=== PATIENT | male | born 1995 | race Caucasian/White ===

== ENCOUNTER 2016-08-24 22:14 | Emergency (ER) | payer SELFPAY ==
[2016-08-24] MEDS ORDERED: SODIUM CHLORIDE 0.9% 1,000 ML IV ONE (23:30)
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
[2016-08-24 23:49] LABS: Basophils # (A) 0.1 k/uL (0-0.2); Basophils % (A) 1 %; CH 31.9; CHCM 35.9; Eosinophils # (A) 0.1 k/uL (0-0.7); Eosinophils % (A) 1 %; HCT 47.9 % (39.0-53.0); HDW 2.69; HGB 17.2 gm/dL (13.0-17.5); Luc # (Auto) 0.15; Luc % (Auto) 2; Lymphocytes # (A) 3.6 k/uL (1.0-4.8); Lymphocytes % (A) 42 %; MCHC 35.9 g/dL (31.0-37.0); MCV 89.2 fL (80.0-100.0); Mean Platelet Volume 8.9; Monocytes # (A) 0.5 k/uL (0-1.0); Monocytes % (A) 6 %; Neutrophils # (A) 4.1 k/uL (1.3-7.7); Neutrophils % (A) 48 %; RBC 5.38 m/uL (4.30-5.90); RDW 13.2 % (11.5-15.5); WBC 8.4 k/uL (3.8-10.6); WBC (Perox) 8.13
[2016-08-25 00:04] LABS: ALT 27 U/L (21-72); AST 28 U/L (17-59); Alkaline Phosphatase 85 U/L (38-126); Anion Gap 13 mmol/L; Blood Urea Nitrogen 11 mg/dL (9-20); Calcium 8.6 mg/dL (8.4-10.2); Carbon Dioxide 23 mmol/L (22-30); Chloride 112 mmol/L (98-107); Glucose 164 mg/dL (74-99); Non-African American GFR(MDRD) >60 (>60 ml/min/1.73 sqM); Potassium 4.5 mmol/L (3.5-5.1); Sodium 148 mmol/L (137-145); Total Bilirubin 0.6 mg/dL (0.2-1.3); Total Protein 6.5 g/dL (6.3-8.2)
[2016-08-25 00:08] LABS: Alcohol 185 mg/dL
[2016-08-25 00:11] VITALS: RESP 18
[2016-08-25 00:51] LABS: Appearance,Urine Clear (Clear); Bilirubin,Urine Negative (Negative); Glucose,Urine (UA) Negative (Negative); Ketones,Urine Negative (Negative); Leukocyte Esterase,Urine Negative (Negative); Nitrite,Urine Negative (Negative); PH, Urine 7.5 (5.0-8.0); Protein,Urine Negative (Negative); Specific Gravity,Urine 1.017 (1.001-1.035); UA Billing (MACRO vs. MICRO) CHEM
[2016-08-25 01:41] VITALS: BP 123/77; PULSE 88; TEMP 97.5
== END 2016-08-25 01:41 | disposition home or self-care (01) ==
LOC: EC 22:14
DX: R42 Dizziness and giddiness (principal); F10.129 Alcohol abuse with intoxication, unspecified; F17.200 Nicotine dependence, unspecified, uncomplicated
CPT/HCPCS: 36415; 80053; 80306; 80320; 81003; 82075; 85025; 93005; 99284

== ENCOUNTER 2017-09-16 08:34 | Emergency (ER) | payer OTHER ==
[2017-09-16] MEDS ORDERED: SODIUM CHLORIDE 0.9% 1,000 ML IV STA (09:32)
[2017-09-16] MEDS ORDERED: LORazepam 2 MG/ML INJ IV STA (09:32)
[2017-09-16] MEDS ORDERED: THIAMINE 100 MG/ML 2 ML VIAL IM STA (09:32)
[2017-09-16] MEDS ORDERED: ONDANSETRON 4 MG/2 ML VIAL IVP STA (09:32)
[2017-09-16] MEDS ORDERED: LORazepam 2 MG/ML INJ IV PRN ×3 (09:32)
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
[2017-09-16 10:18] LABS: ALT 30 U/L (21-72); AST 34 U/L (17-59); Albumin 4.9 g/dL (3.5-5.0); Alkaline Phosphatase 87 U/L (38-126); Amylase 53 U/L (30-110); Anion Gap 13 mmol/L; Blood Urea Nitrogen 15 mg/dL (9-20); Calcium 10.1 mg/dL (8.4-10.2); Carbon Dioxide 27 mmol/L (22-30); Chloride 99 mmol/L (98-107); Glucose 120 mg/dL (74-99); Lipase 20 U/L (23-300); Potassium 4.7 mmol/L (3.5-5.1); Sodium 139 mmol/L (137-145); Total Bilirubin 1.5 mg/dL (0.2-1.3); Total Protein 7.5 g/dL (6.3-8.2)
[2017-09-16 10:26] LABS: Basophils % (A) 0 %; Eosinophils % (A) 0 %; HCT 51.4 % (39.0-53.0); HGB 17.7 gm/dL (13.0-17.5); Lymphocytes # (A) 1.1 k/uL (1.0-4.8); Lymphocytes % (A) 9 %; MCH 30.4 pg (25.0-35.0); MCHC 34.3 g/dL (31.0-37.0); MCV 88.6 fL (80.0-100.0); Mean Platelet Volume 8.9; Monocytes # (A) 0.5 k/uL (0-1.0); Monocytes % (A) 4 %; Neutrophils # (A) 10.7 k/uL (1.3-7.7); Neutrophils % (A) 85 %; Platelet Count 194 k/uL (150-450); RBC 5.81 m/uL (4.30-5.90); RDW 13.3 % (11.5-15.5); WBC 12.6 k/uL (3.8-10.6)
--- NOTE | 2017-09-16 11:51 | US ---
EXAMINATION TYPE: US abdomen limited DATE OF EXAM: 09/16/2017 COMPARISON: NONE CLINICAL HISTORY: Pain. patient states heavy drinker, dehydrated, cannot swallow water without feelin g sick, dry heaving during exam, unable to hold still, moaning EXAM MEASUREMENTS: Liver Length: 17.6 cm Gallbladder Wall: 0.2 cm CBD: 0.5 cm Right Kidney: 11.1 x 5.1 x 3.8 cm Pancreas: wnl Liver: wnl, motion artifact due to moaning and patient unable to hold still Gallbladder: wnl Evidence for sonographic Michael's sign: no CBD: wnl Right Kidney: wnl IMPRESSION: Unremarkable limited abdominal ultrasound with no sonographic evidence of cholelithiasis or acute cholecystitis.
[2017-09-16 12:56] VITALS: BP 132/76; PULSE 62; RESP 16; TEMP 98.2
[2017-09-16] MEDS ORDERED: THIAMINE 100 MG TAB PO SCH (17:00)
== END 2017-09-16 13:17 | disposition home or self-care (01) ==
LOC: EC 08:34
DX: F10.10 Alcohol abuse, uncomplicated (principal); R11.2 Nausea with vomiting, unspecified; D72.829 Elevated white blood cell count, unspecified; F17.200 Nicotine dependence, unspecified, uncomplicated
CPT/HCPCS: 99284 ×3; 96374 ×2; 96361 ×2; 96372 ×2; 82075; 36415; 80053; 82140; 82150; 83690; 85025; 76705; S0183; J3411; J2405

== ENCOUNTER 2017-09-16 14:28 | Emergency (ER) | payer OTHER ==
[2017-09-16] MEDS ORDERED: LORazepam 1 MG TAB PO STA (15:44)
[2017-09-16] MEDS ORDERED: PROCHLORPERAZINE 10 MG TAB PO STA (15:44)
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
[2017-09-16 17:13] VITALS: RESP 16
[2017-09-16 20:31] VITALS: BP 118/58; PULSE 65; TEMP 98.1
== END 2017-09-16 20:39 | disposition home or self-care (01) ==
LOC: EC 14:28
DX: F10.10 Alcohol abuse, uncomplicated (principal); R11.2 Nausea with vomiting, unspecified; F17.200 Nicotine dependence, unspecified, uncomplicated
CPT/HCPCS: 99284 ×2; 82075; S0183

== ENCOUNTER 2017-12-26 21:45 | Emergency (ER) | payer SELFPAY ==
[2017-12-26] MEDS ORDERED: ONDANSETRON 4 MG/2 ML VIAL IVP STA (22:55)
[2017-12-26] MEDS ORDERED: SODIUM CHLORIDE 0.9% 1,000 ML IV STA (22:55)
[2017-12-26 23:17] LABS: Basophils % (A) 0 %; Eosinophils # (A) 0.1 k/uL (0-0.7); Eosinophils % (A) 1 %; HCT 46.8 % (39.0-53.0); HGB 15.9 gm/dL (13.0-17.5); Lymphocytes # (A) 2.5 k/uL (1.0-4.8); Lymphocytes % (A) 18 %; MCH 29.9 pg (25.0-35.0); MCV 88.1 fL (80.0-100.0); Mean Platelet Volume 8.3; Monocytes # (A) 0.8 k/uL (0-1.0); Monocytes % (A) 6 %; Neutrophils # (A) 10.3 k/uL (1.3-7.7); Neutrophils % (A) 75 %; Platelet Count 197 k/uL (150-450); RBC 5.32 m/uL (4.30-5.90); RDW 13.4 % (11.5-15.5); WBC 13.9 k/uL (3.8-10.6)
[2017-12-26 23:27] LABS: ALT 40 U/L (21-72); AST 36 U/L (17-59); Albumin 4.5 g/dL (3.5-5.0); Alcohol <10 mg/dL; Alkaline Phosphatase 76 U/L (38-126); Amylase 97 U/L (30-110); Anion Gap 13 mmol/L; Blood Urea Nitrogen 12 mg/dL (9-20); Calcium 9.6 mg/dL (8.4-10.2); Carbon Dioxide 21 mmol/L (22-30); Chloride 105 mmol/L (98-107); Glucose 114 mg/dL (74-99); Lipase 22 U/L (23-300); Sodium 139 mmol/L (137-145); Total Bilirubin 1.1 mg/dL (0.2-1.3); Total Protein 6.6 g/dL (6.3-8.2)
[2017-12-26 23:44] LABS: Creatine Kinase 280 U/L (55-170)
[2017-12-26 23:46] LABS: Acetaminophen <10.0 ug/mL; Salicylate <1.0 mg/dL
[2017-12-26 23:58] LABS: Creatine Kinase MB 1.8 ng/mL (0.0-2.4); Troponin I <0.012 ng/mL (0.000-0.034)
--- NOTE | 2017-12-27 00:02 | XR ---
EXAMINATION TYPE: XR KUB DATE OF EXAM: 12/26/2017 COMPARISON: None HISTORY: Abdominal pain TECHNIQUE: 3 views FINDINGS: There is no sign of intestinal obstruction or pneumoperitoneum. Fecal pattern is normal. Th ere is no evidence of a mass. There are surgical clips in the left upper quadrant. Lung bases are vincent ar. There are no pathologic calcifications over the kidneys. IMPRESSION: Nonacute abdomen.
[2017-12-27 00:08] LABS: Appearance,Urine Clear (Clear); Bilirubin,Urine Negative (Negative); Blood,Urine Negative (Negative); Color,Urine Dark Yellow; Glucose,Urine (UA) Negative (Negative); Ketones,Urine 2+ (Negative); Leukocyte Esterase,Urine Negative (Negative); Nitrite,Urine Negative (Negative); Protein,Urine Trace (Negative); Specific Gravity,Urine 1.028 (1.001-1.035)
[2017-12-27 00:21] LABS: Amphetamine Screen,Urine Not Detected (NotDetected); Barbiturate Screen,Urine Not Detected (NotDetected); Benzodiazepines Screen,Urine Detected (NotDetected); Cocaine Screen,Urine Not Detected (NotDetected); Methadone Screen, Urine Not Detected (NotDetected); Opiate Screen,Urine Not Detected (NotDetected); Oxycodone Screen, Urine Not Detected (NotDetected); Phencyclidine Screen,Urine Not Detected (NotDetected); Tricyclic Antidepressant,Urine Not Detected (NotDetected); Urn Cannabinoid Scrn Detected (NotDetected)
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
[2017-12-27] MEDS ORDERED: METOCLOPRAMIDE 5 MG/ML 2 ML VIAL IVP STA (02:41)
[2017-12-27] MEDS ORDERED: SODIUM CHLORIDE 0.9% 500 ML IV ONE (02:42)
--- NOTE | 2017-12-27 03:38 | CT ---
EXAMINATION TYPE: CT abdomen pelvis w con DATE OF EXAM: 12/27/2017 COMPARISON: NONE HISTORY: pt. c/o nausea, vomitting, diarrhea, and abdominal pain CT DLP: 643.60 mGycm Automated exposure control for dose reduction was used. TECHNIQUE: Helical acquisition of images was performed from the lung bases through the pelvis. CONTRAST: Performed without Oral Contrast and with IV Contrast, patient injected with 100 mL of Isovue 300. FINDINGS: Lung bases are clear. There is no pleural effusion. There is no pericardial effusion. Liver spleen pancreas gallbladder appear normal. Bile ducts are not dilated. There are left upper lynnette drant multiple surgical clips around the stomach. There is no adrenal mass. Kidneys show satisfactory contrast opacification. There is no hydronephrosi s. I see no intestinal wall thickening. There are no dilated loops. There are surgical clips in the l ateral right mid abdomen and also left lower quadrant. There is no ascites. There is no sign of free air. I see no bony destructive process. Bladder is almost empty. Bony structures appear intact. IMPRESSION: PREVIOUS SURGERY. NO SIGN OF ACUTE ABDOMEN AND PELVIS. NO EVIDENCE OF BOWEL OBSTRUCTION. NO FREE AIR.
[2017-12-27] MEDS ORDERED: ONDANSETRON 4 MG ODT STARTER PACK 2 TAB BTL PO STA (03:47)
[2017-12-27 03:49] VITALS: RESP 18
[2017-12-27 04:07] VITALS: BP 117/68; PULSE 73; TEMP 97.9
== END 2017-12-27 04:06 | disposition home or self-care (01) ==
LOC: EC 21:45
DX: R10.13 Epigastric pain (principal); R10.12 Left upper quadrant pain; R11.10 Vomiting, unspecified; R19.7 Diarrhea, unspecified; D72.829 Elevated white blood cell count, unspecified; R74.0 Nonspecific elevation of levels of transaminase and lactic acid dehydrogenase [LDH]; F17.200 Nicotine dependence, unspecified, uncomplicated
CPT/HCPCS: 36415; 93005 ×2; 80053; 82150; 82550; 82553; 83605; 83690; 83735; 84484; 85025; 81003; 87040; 80306; 83520 ×2; 80320; 74018; 74177; 99284; 96374; 96375; 96361 ×2; J2765; J2405; S0119; Q9967

== ENCOUNTER 2017-12-27 04:25 | Emergency (ER) | payer SELFPAY ==
[2017-12-27 04:33] VITALS: BP 150/84; PULSE 65; RESP 18; TEMP 98
[2017-12-27] MEDS ORDERED: ONDANSETRON ODT 4 MG TAB PO STA (04:34)
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
== END 2017-12-27 07:10 | disposition home or self-care (01) ==
LOC: EC 04:25
DX: R11.2 Nausea with vomiting, unspecified (principal); F17.200 Nicotine dependence, unspecified, uncomplicated
CPT/HCPCS: 99284